=== PATIENT | male | born 1995 | race Caucasian/White ===

== ENCOUNTER 2021-07-31 08:00 | Emergency (ER) | payer MEDICAID ==
[~2021-07-31] VITALS: Ht 182.9 cm; Wt 94.1 kg
[~2021-07-31 08:00] MED LIST: LIDOcaine 1% W/epiNEPHrine 1:100,000 20ml vial ONE
[2021-07-31] MEDS ORDERED: acetaminophen 325mg tablet PO STA (08:18)
[2021-07-31] MEDS ORDERED: CefTRIAXone 2gm/D5W 50ml BAG 50 ML IV ONE (08:20)
[2021-07-31] MEDS ORDERED: normal saline 1000ML IV soln IV ONE (08:20)
[2021-07-31] MEDS ORDERED: dexamethasone sod phosphate 10mg/ml inj IV STA (08:20)
[2021-07-31] MEDS ORDERED: iohexol 300mg/ml 100ml inj. ONE (08:31)
[2021-07-31 09:27] LABS: BASOPHILS % (AUTO) 0.1 % (0-1); EOSINOPHILS # (AUTO) 0.1 X10'3 (0-0.9); EOSINOPHILS % (AUTO) 0.5 % (0-6); HEMATOCRIT 47.5 % (42.0-52.0); HEMOGLOBIN 16.3 g/dl (14.0-17.9); LYMPHOCYTES # (AUTO) 1.3 X10'3 (1.1-4.8); LYMPHOCYTES % (AUTO) 7.8 % (21-51); MEAN CORPUSCULAR HGB CONC 34.3 g/dL (33.0-36.5); MEAN CORPUSCULAR VOLUME 87.7 FL (78-98); MEAN PLATELET VOLUME 8.9 FL (7.4-10.4); MONOCYTES # (AUTO) 1.9 X10'3 (0-0.9); MONOCYTES % (AUTO) 11.5 % (2-12); NEUTROPHILS # (AUTO) 13.5 X10'3 (1.8-7.7); NEUTROPHILS % (AUTO) 80.1 % (42-75); PLATELET COUNT 258 X10'3 (140-440); RED BLOOD COUNT 5.42 X10'6 (4.70-6.10); RED CELL DISTRIBUTION WIDTH 13.1 % (11.5-14.5); WHITE BLOOD COUNT 16.9 X10'3 (4.5-11.0)
[2021-07-31 09:45] LABS: ALANINE AMINOTRANSFERASE 38 U/L (12-78); ALBUMIN 4.1 G/DL (3.4-5.0); ALBUMIN/GLOBULIN RATIO 0.8 (1.1-1.5); ALKALINE PHOSPHATASE 99 IU/L (46-116); ANION GAP 11 (8-16); ASPARTATE AMINO TRANSFERASE 16 U/L (10-37); BILIRUBIN,TOTAL 0.8 MG/DL (0.1-1.0); BLOOD UREA NITROGEN 9 MG/DL (7-18); BUN/CREATININE RATIO 8.8 (5.4-32.0); CALCIUM 9.5 MG/DL (8.5-10.1); CHLORIDE 101 MMOL/L (99-107); CREATININE 1.02 MG/DL (0.60-1.10); GLUCOSE 87 MG/DL (70-104); SODIUM 140 MMOL/L (135-145); TOTAL CARBON DIOXIDE 27.6 MMOL/L (24-32); TOTAL PROTEIN 9.5 G/DL (6.4-8.2); eGFR 90 ML/MIN
--- NOTE | 2021-07-31 10:04 | NUR ---
pt back from ct scan.
[2021-07-31] MEDS ORDERED: ketorolac trometh. 30mg/ml inj. IV ONE (11:15)
[2021-07-31] MEDS ORDERED: LIDOcaine 40mg/ml topical solution MM ONE (11:15)
[2021-07-31] MEDS ORDERED: LIDOCAINE 4% (40MG/ML) topical solution 50ml **BRONCH ONLY ONE (11:19)
[2021-07-31] MEDS ORDERED: lidocaine 2% viscous 15 ML cup ***bronch room only MM ONE (11:19)
--- NOTE | 2021-07-31 11:36 | NUR ---
RT AT BEDSIDE,I&D TRAY SETUP AT BEDSIDE.
[2021-07-31] MEDS ORDERED: LIDO20SO16 PO (12:11)
[2021-07-31] MEDS ORDERED: CEPH250T PO (12:11)
[2021-07-31] MEDS ORDERED: HYDR-3965 PO (12:11)
[2021-07-31] MEDS ORDERED: METH4TAB3 PO (12:11)
[2021-07-31 13:58] VITALS: BP 109/66
== END 2021-07-31 13:55 | disposition home or self-care (01) ==
LOC: ER 08:00
DX: J36 Peritonsillar abscess (principal); Z79.2 Long term (current) use of antibiotics; Z79.899 Other long term (current) drug therapy; Z91.013 Allergy to seafood
CPT/HCPCS: 36415; 42700; 70491; 80053; 83605; 84145; 85025; 87040; 94640; 96365; 96375; 99285; J0696; J1100; J1885; J2001; J7030; Q9967; 94760